=== PATIENT | male | born 1990 | race Caucasian/White ===

== ENCOUNTER 2016-09-02 04:12 | Emergency (ER) | payer SELFPAY ==
[2016-09-02 04:22] VITALS: BP 123/84; BMI 26.4
--- NOTE | 2016-09-02 04:40 | DR.GENAD ---
HPI - PCP Primary Care Physician: NFD - Complaint/Symptoms Chief Complaint Doctors Comments: Patient states that he dropped a TV on the foot tonight-admits to pain with ambulation. Quality sharp, severity moderate, duration tonight, modifying factor weight bearing. Chief Complaint:: INJURED LEFT FOOT - Source History Provided: Patient - Mode of Arrival Mode of Arrival: Ambulatory - Timing Onset of Chief Complaint: 09/02/16 PMH - PMH Past Medical History: No Past Surgical History: No - Family History History of Family Medical Conditions: Yes Family Medical History: Diabetes Mellitus, [place], Coronary Artery Disease, Hypertension - Social History Does patient currently use any type of tobacco product: Yes Have you used tobacco products in the last 12 months: Yes Type of Tobacco Use: Cigarettes Does any household member use tobacco: No Alcohol Use: None Do you use any recreational Drugs:: No Lives With: Family Lives Where: Home - infectious screening In the last 2 months have you had wt loss of >10#?: NO Have you had fever, night sweats or hemotysis?: No Have you traveled outside the country in the last 6 months?: No Isolation: Standard ROS - Review of Systems Eyes: No Symptoms Reported ENTM: No Symptoms Reported Respiratoy: No Symptoms Reported Cardiovascular: No Symptoms Reported Gastrointestinal/Abdominal: No Symptoms Reported Genitourinary: No Symptoms Reported Neurological: No Symptoms Reported Musculoskeletal: No Symptoms Reported Integumentary: No Symptoms Reported Hematologic/Lymphatic: No Symptoms Reported Endocrine: No Symptoms Reported Psychiatric: No Symptoms Reported All Other Systems: Reviewed and Negative PE - Vital Signs Vitals: Temperature 98.7 F Pulse Rate 81 Respiratory Rate 16 Blood Pressure 123/84 O2 Sat by Pulse Oximetry 98 - General Limitations: No Limitations General Appearance: Alert, In No Apparent Distress - Head Head Exam: Normal Inspection, Atraumatic - Eyes Eye exam: Normal Appearance, PERRL, EOMI - ENT ENT Exam: Normal Exam External Ear Exam: Normal External Inspection TM/Canal Exam: Bilateral Normal Nose Exam: Normal Nose Exam Mouth Exam: Normal Inspection Throat Exam: Normal Inspection - Neck Neck Exam: Normal Inspection - Chest Chest Inspection: Normal Inspection - Respiratory Respiratory Exam: Normal Lung Sounds Bilat Respiratory Exam: Bilateral Clear to Auscultation - Cardiovascular Cardiovascular Exam: Regular Rate, Normal Rhythm - Abdominal Exam Abdominal Exam: Normal Inspection Abdominal Tenderness: negative: RUQ, RLQ, LUQ, LLQ, Epigastrium, Suprapubic, Diffuse, Mild, Moderate, Severe, Other - Extremities Extremities Exam: Normal Inspection - Back Back Exam: Normal Inspection - Neurologic Neurological Exam: Alert, Oriented X3, CN II-XII Intact - Psychiatric Psychiatric Exam: Normal Affect - Skin Skin Exam: Warm, Dry, Other (left dorsum of foot with an abrasion navicular area ) Course - Reevaluation 1st: Improved ROR - XRAY XRAY Interpreted by: Radiologist (Left foot: No acute fracture or dislocation. The joint spaces are preserved. The soft tissues are normal. No radiopaque foreign body.) - Diagnosis Discharge Problem: Contusion of foot, left Qualifiers: Encounter type: initial encounter Qualified Code(s): S90.32XA - Contusion of left foot, initial encounter - Discharge Plan Condition: Stable - Follow ups/Referrals Follow ups/Referrals: NFD,None [Primary Care Provider] - 3 days - Instructions
--- NOTE | 2016-09-02 04:52 | RAD ---
EXAM: Left foot x-ray INDICATION: Pain COMPARISION: None TECHNIQUE: AP, lateral, and oblique, three views FINDINGS: No acute fracture or dislocation. The joint spaces are preserved. The soft tissues are normal. No ra diopaque foreign body. IMPRESSION: Normal left foot x-ray exam Reported By:
== END 2016-09-02 05:17 | disposition home or self-care (01) | DRG 605 ==
LOC: ER 04:12
DX: S90.32XA Contusion of left foot, initial encounter (principal); W20.8XXA Other cause of strike by thrown, projected or falling object, initial encounter; Y92.89 Other specified places as the place of occurrence of the external cause
CPT/HCPCS: 29550; 73630; 99282; 99283

== ENCOUNTER 2016-09-06 00:42 | Emergency (ER) | payer SELFPAY ==
[2016-09-06 00:47] VITALS: BP 135/74; BMI 26.4
--- NOTE | 2016-09-06 00:52 | DR.GENAD ---
HPI - PCP Primary Care Physician: nfd - Complaint/Symptoms Chief Complaint:: breakout/rash - Nurses notes reviewed Nurses Notes Review: Yes - Source History Provided: Patient - Mode of Arrival Mode of Arrival: Ambulatory - Timing Onset of Chief Complaint: 09/06/16 Came on: Gradually - Duration How lon Duration: Days - Location Location: both arms - Severity Severity: Moderate - Modifying Factors Worsens:: nothing - Associated Signs and Symptoms Associated Signs and Symptoms: itchy - Other History Other History: helped friend move into house yesterday PMH - PMH Past Medical History: No Past Surgical History: No - Family History History of Family Medical Conditions: Yes Family Medical History: Diabetes Mellitus, [place], Coronary Artery Disease, Hypertension - Social History Does patient currently use any type of tobacco product: No Have you used tobacco products in the last 12 months: No Type of Tobacco Use: None Does any household member use tobacco: No Alcohol Use: Occasionally Do you use any recreational Drugs:: No Lives With: Family Lives Where: Home - infectious screening In the last 2 months have you had wt loss of >10#?: NO Have you had fever, night sweats or hemotysis?: No Have you traveled outside the country in the last 6 months?: No Isolation: Standard ROS - Review of Systems Constitutional: No Symptoms Reported Eyes: No Symptoms Reported ENTM: No Symptoms Reported Respiratoy: No Symptoms Reported Cardiovascular: No Symptoms Reported Gastrointestinal/Abdominal: No Symptoms Reported Genitourinary: No Symptoms Reported Neurological: No Symptoms Reported Musculoskeletal: No Symptoms Reported Integumentary: Rash (both arms) Hematologic/Lymphatic: No Symptoms Reported Endocrine: No Symptoms Reported Psychiatric: No Symptoms Reported All Other Systems: Reviewed and Negative PE - Vital Signs Vitals: Temperature 98.6 F Pulse Rate 111 Respiratory Rate 16 Blood Pressure 135/74 O2 Sat by Pulse Oximetry 98 - General Limitations: No Limitations General Appearance: Alert, In No Apparent Distress - Head Head Exam: Normal Inspection - Eyes Eye exam: Normal Appearance, EOMI. negative: Scleral Icterus, Conjunctival Injection - ENT ENT Exam: Normal Exam, Normal Oropharynx External Ear Exam: Normal External Inspection - Neck Neck Exam: Normal Inspection, Full ROM, Trachea Midline - Respiratory Respiratory Exam: negative: Accessory Muscle Use, Respiratory Distress - Abdominal Exam Abdominal Exam: Normal Inspection, Normal Bowel Sounds, Soft. negative: Distention, Tenderness, Guarding - Extremities Extremities Exam: Normal Inspection, Full ROM - Back Back Exam: Normal Inspection, Full ROM - Neurologic Neurological Exam: Alert, Oriented X3, CN II-XII Intact - Psychiatric Psychiatric Exam: Normal Mood - Skin Skin Exam: Intact, Rash (papular rash inside of both arms). negative: Normal Color - Diagnosis Discharge Problem: Contact dermatitis Qualifiers: Contact dermatitis type: irritant Contact dermatitis trigger: unspecified trigger Qualified Code(s): L24.9 - Irritant contact dermatitis, unspecified cause - Discharge Plan Condition: Stable - Follow ups/Referrals Follow ups/Referrals: NFD,None [Primary Care Provider] - 3 days - Instructions
[2016-09-06] MEDS ORDERED: PREDNISONE TAB 20 MG PO ONE ×2 (01:02→01:04)
== END 2016-09-06 01:05 | disposition home or self-care (01) ==
LOC: ER 00:49
DX: L24.89 Irritant contact dermatitis due to other agents (principal)
CPT/HCPCS: 99281; 99282; J7506

== ENCOUNTER 2016-10-30 00:27 | Emergency (ER) | payer SELFPAY ==
[2016-10-30 00:36] VITALS: BP 136/79; BMI 29.8
--- NOTE | 2016-10-30 01:22 | DR.GENAD ---
HPI - PCP Primary Care Physician: nfd - HPI Comment HPI Comment: WORSE TODAY. NO FEVER. - Complaint/Symptoms Chief Complaint Doctors Comments: SOB, CHEST PAIN, COUGH CONGESTION AND HEMOPTESIS TIMES 3 DAYS, Chief Complaint:: cough bloodand can't breath - Nurses notes reviewed Nurses Notes Review: Yes - Source History Provided: Patient - Mode of Arrival Mode of Arrival: Ambulatory - Timing Onset of Chief Complaint: 10/27/16 Came on: Suddenly - Duration Duration: Constant Duration: Days - Severity Severity: Moderate PMH - PMH Past Medical History: No Past Surgical History: No - Family History History of Family Medical Conditions: Yes Family Medical History: Diabetes Mellitus, [place], Coronary Artery Disease, Hypertension - Social History Does patient currently use any type of tobacco product: Yes Have you used tobacco products in the last 12 months: Yes Type of Tobacco Use: Cigarettes Does any household member use tobacco: Yes Alcohol Use: None Do you use any recreational Drugs:: Yes Lives With: Family Lives Where: Home - infectious screening In the last 2 months have you had wt loss of >10#?: NO Have you had fever, night sweats or hemotysis?: No Have you traveled outside the country in the last 6 months?: No Isolation: Standard ROS - Review of Systems Constitutional: Weakness, Fatigue. negative: Chills, Fever Eyes: No Symptoms Reported. negative: Eye Pain, Discharge ENTM: No Symptoms Reported, Nose Discharge, Nose Congestion, Throat Pain. negative: Ear Pain Respiratoy: Productive Cough, Short of Breath, Wheezing, Hemoptysis Cardiovascular: Chest Pain Gastrointestinal/Abdominal: No Symptoms Reported. negative: Abdominal Pain, Diarrhea, Nausea, Vomiting Genitourinary: No Symptoms Reported. negative: Dysuria, Frequency, Hematuria Neurological: Headache Musculoskeletal: Muscle Pain Integumentary: No Symptoms Reported Hematologic/Lymphatic: No Symptoms Reported Endocrine: No Symptoms Reported All Other Systems: Reviewed and Negative PE - Vital Signs Vitals: Temperature 98.1 F Pulse Rate 98 Respiratory Rate 18 Blood Pressure 136/79 O2 Sat by Pulse Oximetry 98 - General Limitations: No Limitations General Appearance: Alert - Head Head Exam: Normal Inspection - Eyes Eye exam: Normal Appearance - ENT ENT Exam: Normal External Ear Exam External Ear Exam: Normal External Inspection TM/Canal Exam: Bilateral Bulging Nose Exam: Normal Nose Exam Mouth Exam: Normal Inspection Throat Exam: Normal Inspection - Neck Neck Exam: Trachea Midline - Chest Chest Inspection: Symmetric Chest Wall Rise - Respiratory Respiratory Exam: Normal Lung Sounds Bilat Respiratory Exam: Bilateral Clear to Auscultation - Cardiovascular Cardiovascular Exam: Regular Rate, Normal Rhythm, Normal Heart Sounds - Abdominal Exam Abdominal Exam: Normal Bowel Sounds, Soft. negative: Tenderness - Extremities Extremities Exam: Normal Inspection. negative: Tenderness - Back Back Exam: Normal Inspection - Neurologic Neurological Exam: Alert, Oriented X3, CN II-XII Intact, Normal Gait, Reflexes Normal. negative: Motor Sensory Deficit - Psychiatric Psychiatric Exam: Anxious - Skin Skin Exam: Normal Color MDM - Additional Information Additional Information Obtained From: Family - Differential Diagnosis Differential Diagnosis: PNEUMONIA, BRONCHITIS, HEMOTESIS, SINUSITIS Course - Treatment Treatment: SEE ORDERS, - Education/Counseling Education/Counseling: Patient, Family, Education Educated On: Treatment, Diagnosis, Needs for Follow Up ROR - Labs Reviewed Laboratory Results Reviewed?: Yes Result Diagrams: 10/30/16 01:27 10/30/16 01:27 Laboratory: WBC 7.3 X10^3/uL (3.6-10.0) 10/30/16 01: RBC 4.55 X10^6/uL (4.7-6.0) L 10/30/16 01: Hgb 14.8 g/dL (13.5-18.0) 10/30/16 01: Hct 41.7 % (42.0-54.0) L 10/30/16 01: MCV 91.7 fL (80.0-100.0) 10/30/16 01: MCH 32.4 pg (27.0-34.0) 10/30/16 01: MCHC 35.4 g/dL (33.0-35.0) H 10/30/16 01: RDW 13.4 % (11.6-16.5) 10/30/16: Plt Count 206 X10^3/uL (150.0-450.0) 10/30/16: MPV 7.9 fL (7.4-11.0) 10/30/16: Neut % 54.2 % (42.0-75.0) 10/30/16: Lymph % 28.0 % (21.0-51.0) 10/30/16 01:27 [place] % 14.0 % (0.0-13.0) H 10/30/16 01: Eos % 2.9 % (0.9-2.9) 10/30/16 01: Baso % 0.9 % (0.2-1.0) 10/30/16 01:27 Neut # 4.0 x10^3/uL (2.2-4.8) 10/30/16 01: Lymph # 2.0 X10^3/uL (1.3-2.9) 10/30/16 01:27 [place] # 1.0 x10^3/uL (0.3-0.8) H 10/30/16 01: Eos # 0.2 x10^3/uL (0.0-0.2) 10/30/16 01: Baso # 0.1 X10^3/uL (0.0-0.1) 10/30/16 01: Absolute Nucleated RBC 0.0 /100WBC 10/30/16 01:27 INR Target Range - 10/30/16 01:27 INR 0.98 (0.8-1.3) 10/30/16 01:27 PTT 30.1 SECONDS (22.9-36.5) 10/30/16 01:27 PTT Comment - 10/30/16 01:27 Sodium 138 mmol/L (136-145) 10/30/16 01:27 Corrected Sodium TNP 10/30/16 01:27 Potassium 4.3 mmol/L (3.5-5.1) 10/30/16 01:27 Chloride 103 mmol/L (98-107) 10/30/16 01:27 Carbon Dioxide 32.1 mmol/L (21-32) H 10/30/16 01:27 BUN 9 mg/dL (7-18) 10/30/16 01:27 Creatinine 0.89 mg/dL (0.70-1.30) 10/30/16 01:27 Est GFR (MDRD) Af Amer > 60 (>60) 10/30/16 01:27 Est GFR (MDRD) Non-Af > 60 (>60) 10/30/16 01:27 Glucose 91 mg/dL (65-99) 10/30/16 01:27 Calcium 8.6 mg/dL (8.5-10.1) 10/30/16 01:27 Corrected Calcium TNP 10/30/16 01:27 Total Bilirubin 0.30 mg/dL (0.2-1.0) 10/30/16 01:27 AST 17 Units/L (15-37) 10/30/16 01:27 ALT 21 Units/L (12-78) 10/30/16 01:27 Alkaline Phosphatase 56 Units/L (46-116) 10/30/16 01:27 Total Protein 7.3 g/dL (6.4-8.2) 10/30/16 01: Albumin 3.7 g/dL (3.4-5.0) 10/30/16: Globulin 3.6 g/dL (2.5-4.5) 10/30/16: Albumin/Globulin Ratio 1.0 Ratio (1.1-2.1) L 10/30/16 01:27 - XRAY XRAY Interpreted by: Self XRAY Findings: XRAY DISCUSS WITH PATIENT BRONCHITIS - Diagnosis Discharge Problem: Hemoptysis Acute bronchitis Qualifiers: Bronchitis organism: other organism Qualified Code(s): J20.8 - Acute bronchitis due to other specified organisms - Discharge Plan Condition: Stable Prescriptions: Amoxicillin [Amoxil 875 mg] 875 mg PO TID #30 tab Promethazine W/Codeine [PHENERGAN W/CODEINE 6.25mg/10mg (5mL) *] 10 ml PO Q6H PRN #120 ml PRN Reason: Cough - Follow ups/Referrals Follow ups/Referrals: NFD,None [Primary Care Provider] - 3 days - Instructions Instructions: Hemoptysis, Acute Bronchitis, [id number] Additional Instructions: RETURN TO ED
[2016-10-30] MEDS ORDERED: PHENERGAN W/CODEINE 6.25MG/10MG PO ONE (01:25)
[2016-10-30] MEDS ORDERED: AMOXIL CAP 500 MG PO ONE ×2 (01:25→01:52)
[2016-10-30 01:40] LABS: BASOPHILS # (AUTO) 0.1 X10^3/uL (0.0-0.1); BASOPHILS % (AUTO) 0.9 % (0.2-1.0); EOSINOPHILS # (AUTO) 0.2 x10^3/uL (0.0-0.2); EOSINOPHILS % (AUTO) 2.9 % (0.9-2.9); HEMATOCRIT 41.7 % (42.0-54.0); HEMOGLOBIN 14.8 g/dL (13.5-18.0); MEAN CORPUSCULAR HEMOGLOBIN 32.4 pg (27.0-34.0); MEAN CORPUSCULAR HGB CONC 35.4 g/dL (33.0-35.0); MEAN CORPUSCULAR VOLUME 91.7 fL (80.0-100.0); MEAN PLATELET VOLUME 7.9 fL (7.4-11.0); NEUTROPHILS % (AUTO) 54.2 % (42.0-75.0); PLATELET COUNT 206 X10^3/uL (150.0-450.0); RED BLOOD COUNT 4.55 X10^6/uL (4.7-6.0); RED CELL DISTRIBUTION WIDTH 13.4 % (11.6-16.5); WHITE BLOOD COUNT 7.3 X10^3/uL (3.6-10.0)
[2016-10-30] MEDS ORDERED: PHENERGAN W/CODEINE 6.25MG/10MG ONE (01:41)
[2016-10-30 01:59] LABS: ALANINE AMINOTRANSFERASE 21 Units/L (12-78); ALBUMIN 3.7 g/dL (3.4-5.0); ALKALINE PHOSPHATASE 56 Units/L (46-116); ASPARTATE AMINO TRANSFERASE 17 Units/L (15-37); BLOOD UREA NITROGEN 9 mg/dL (7-18); CALCIUM 8.6 mg/dL (8.5-10.1); CARBON DIOXIDE 32.1 mmol/L (21-32); CHLORIDE 103 mmol/L (98-107); CREATININE 0.89 mg/dL (0.70-1.30); GLUCOSE 91 mg/dL (65-99); SODIUM 138 mmol/L (136-145); TOTAL PROTEIN 7.3 g/dL (6.4-8.2); eGFR BLACK RACES > 60 (>60); eGFR NON BLACK RACES > 60 (>60)
--- NOTE | 2016-10-30 02:27 | RAD ---
AP Chest Indication: Chest pain with hemoptysis Comparison: none available Findings: The trachea is midline. The cardiac silhouette is unremarkable. The lungs are clear without focal i nfiltrate or effusion. The bony thorax is unremarkable. IMPRESSION: 1. No acute cardiopulmonary abnormality. Reported By:
== END 2016-10-30 02:20 | disposition home or self-care (01) ==
LOC: ER 00:27
DX: J02.8 Acute pharyngitis due to other specified organisms (principal); R04.2 Hemoptysis
CPT/HCPCS: 36415; 71010; 80053; 85025; 85610; 85730; 99283

== ENCOUNTER 2017-06-17 22:34 | Emergency (ER) | payer SELFPAY ==
[2017-06-17 22:47] VITALS: BMI 30.3
[2017-06-17 23:13] LABS: BILIRUBIN,URINE 2+ (NEGATIVE); BLOOD/HEMOGLOBIN,URINE 1+ (NEGATIVE); GLUCOSE, URINE NEGATIVE (NEGATIVE); KETONES,URINE 1+ (NEGATIVE); LEUKOCYTE ESTERASE ,URINE 2+ (NEGATIVE); NITRITES,URINE NEGATIVE (NEGATIVE); PROTEIN,URINE 2+ (NEGATIVE); UROBILINOGEN,URINE 3+ (NORMAL)
[2017-06-17 23:19] LABS: BASOPHILS # (AUTO) 0.1 X10^3/uL (0.0-0.1); BASOPHILS % (AUTO) 0.8 % (0.2-1.0); EOSINOPHILS # (AUTO) 0.2 x10^3/uL (0.0-0.2); EOSINOPHILS % (AUTO) 2.6 % (0.9-2.9); HEMATOCRIT 40.1 % (42.0-54.0); HEMOGLOBIN 14.2 g/dL (13.5-18.0); LYMPHOCYTES # (AUTO) 1.9 X10^3/uL (1.3-2.9); LYMPHOCYTES % (AUTO) 26.4 % (21.0-51.0); MEAN CORPUSCULAR HEMOGLOBIN 32.3 pg (27.0-34.0); MEAN CORPUSCULAR HGB CONC 35.5 g/dL (33.0-35.0); MEAN PLATELET VOLUME 7.1 fL (7.4-11.0); MONOCYTES # (AUTO) 1.1 x10^3/uL (0.3-0.8); MONOCYTES % (AUTO) 15.2 % (0.0-13.0); PLATELET COUNT 283 X10^3/uL (150.0-450.0); RED BLOOD COUNT 4.41 X10^6/uL (4.7-6.0); RED CELL DISTRIBUTION WIDTH 13.3 % (11.6-16.5); WHITE BLOOD COUNT 7.2 X10^3/uL (3.6-10.0)
[2017-06-17 23:26] LABS: APPEARANCE,URINE SLIGHTLY HAZY (CLEAR); COLOR,URINE AMBER (YELLOW)
[2017-06-17 23:27] LABS: SALICYLATE < 2.8 mg/dL (2.8-20)
[2017-06-17 23:28] LABS: BACTERIA,URINE NEGATIVE /HPF (NEGATIVE); CALCIUM OXALATE CRYSTALS,UR FEW /HPF (NEGATIVE); MUCUS,URINE NUMEROUS /HPF (NEGATIVE); SQUAMOUS EPITHELIAL CELL,UR MODERATE /HPF (NEGATIVE)
[2017-06-17 23:29] LABS: ALANINE AMINOTRANSFERASE 20 Units/L (12-78); ALBUMIN 3.9 g/dL (3.4-5.0); ALKALINE PHOSPHATASE 60 Units/L (46-116); ASPARTATE AMINO TRANSFERASE 17 Units/L (15-37); BLOOD ALCOHOL < 3 mg/dL (0-19.9); BLOOD UREA NITROGEN 9 mg/dL (7-18); CALCIUM 8.7 mg/dL (8.5-10.1); CARBON DIOXIDE 28.2 mmol/L (21-32); CHLORIDE 103 mmol/L (98-107); COR NA(FOR HYPERGLY) 140 mmol/L (136-145); CREATININE 1.12 mg/dL (0.70-1.30); SODIUM 140 mmol/L (136-145); TOTAL PROTEIN 7.7 g/dL (6.4-8.2); eGFR BLACK RACES > 60 (>60); eGFR NON BLACK RACES > 60 (>60)
--- NOTE | 2017-06-18 00:05 | DR.GENAD ---
HPI - PCP Primary Care Physician: NFD - Complaint/Symptoms Chief Complaint Doctors Comments: Patient states that he does not know why he is here that is not thinking about killing himself or anyone else. States he has scatches on his left arm from his sister's cats. States he is worried about his mother who has lost one lef and is about to loose another leg. states he has not seen her in six years because he was locked up until recently he got out for thief by taking. Patient denies chest pain, SOB, nausea or vomiting. Patient brought in by police who said the patient got into an argument with his sister who just broke up with him and told her if she did not call his girl friend he was going to kill himself. states the patient pulled a kitchen knife and his sister took that from him and he pulled out a pocket knife and scratched his left arm states he was going to kill himself. Police states patient said if he was thinking about killing himself he would call the police or someone and the police was leaving and the patient said that he would probable not call anyone and just kill himself and the police brought him to the emergency room for evaluation. Patient presently denies any suicidal thoughts or attempts. States he has never tried to kill himself and is not thinking about killing himself or anyone. Chief Complaint:: PATIENT STATES, "I DON'T KNOW WHY I AM HERE. I WAS VISITING MY SISTER AT THE APARTMENT AND 2 SALES DEPARTMENT CLERK CAME TO THE DOOR AND CALLED ME OUT. YALL ARE WASTING YALLS TIME HERE. THE CATS SCRATCHED ME ON THE WRIST." NOTED 2 ABRASIONS, SCRATCHES TO LEFT WRIST. NO ACTIVE BLEEDING. PATIENT DENIES ANY MEDICAL HISTORY, ANY MEDICATIONS AND STATES, "I AM HOMELESS." - Nurses notes reviewed Nurses Notes Review: Yes - Source History Provided: Patient, Law Enforcement - Mode of Arrival Mode of Arrival: Ambulatory - Timing Onset of Chief Complaint: 06/17/17 Came on: Gradually - Duration Duration: Intermittent Duration: Hours - Location Location: scratches to left arm - Severity Severity: Mild (superficial scratches ) - Modifying Factors Worsens:: nothing Improves:: nothing <CHRISTINA GRUBER - Last Filed: 06/18/17 02:06> PMH - PMH Past Medical History: Yes Past Medical History: Schizophrenia Past Medical History Comment: SCHIZOPHRENIA, ADD/ADHD Past Surgical History: No - Family History History of Family Medical Conditions: Yes Family Medical History: Diabetes Mellitus, [place], Coronary Artery Disease, Hypertension - Social History Type of Tobacco Use: Cigarettes Alcohol Use: Occasionally Do you use any recreational Drugs:: Yes (THC) Lives Where: Homeless - infectious screening Have you traveled outside the country in the last 6 months?: No Isolation: Standard <CHRISTINA GRUBER - Last Filed: 06/18/17 02:06> ROS - Review of Systems Constitutional: No Symptoms Reported. negative: See HPI, Chills, Diaphoresis, Fever, Malaise, Weakness, Irritable, Fatigue, Loss of Appetite, Other Eyes: No Symptoms Reported ENTM: No Symptoms Reported. negative: See HPI, Ear Pain, Ear Discharge, Pulling on Ears, Hearing Loss, Nose Pain, Nose Discharge, Epistaxis, Nose Congestion, Mouth Pain, Mouth Swelling, Loose Teeth, Drooling, Throat Pain, Throat Swelling, Ear Foreign Body Respiratoy: No Symptoms Reported. negative: See HPI, Productive Cough, Non- Productive Cough, Moist Cough, Dry Cough, Hacking Cough, Barking Cough, Brassy Cough, Orthopnea, Short of Breath, Stridor, Wheezing, Hemoptysis, Other Cardiovascular: No Symptoms Reported. negative: See HPI, Chest Pain, Edema, Palpitations, Syncope, Cyanosis, Skin Mottling, Other Gastrointestinal/Abdominal: No Symptoms Reported, Abdominal Pain (lower abdominal pain when he bend). negative: See HPI, Constipation, Diarrhea, Nausea , Vomiting, Food Intolerance, Other Genitourinary: No Symptoms Reported. negative: See HPI, Discharge, Dysuria, Frequency, Hematuria, Pain, Bleeding, Other Neurological: No Symptoms Reported, Emotional Problems. negative: See HPI, Anxiety, Depressed, Headache, Numbness, Paresthesia, Pre-existing Deficit, Seizure, Tingling, Tremors, Weakness, Dizziness, Problems Walking, Speech Problem, Other Musculoskeletal: No Symptoms Reported Integumentary: No Symptoms Reported, Bruises (left arm with superficial scratches) Hematologic/Lymphatic: No Symptoms Reported Endocrine: No Symptoms Reported Psychiatric: No Symptoms Reported <CHRISTINA GRUBER - Last Filed: 06/18/17 02:06> PE - General Limitations: No Limitations General Appearance: Alert, In No Apparent Distress - Head Head Exam: Normal Inspection, Atraumatic, Normocephalic - Eyes Eye exam: Normal Appearance, PERRL, EOMI. negative: Scleral Icterus, Conjunctival Injection, Nystagmus, Miosis, Mydrasis, Periorbital Swelling, Periorbital Tenderness, Other - ENT ENT Exam: Normal Exam, Normal Oropharynx, Normal External Ear Exam, Mucous Membranes Moist, TM's Normal Bilaterally External Ear Exam: Normal External Inspection TM/Canal Exam: Bilateral Normal Nose Exam: Normal Nose Exam Mouth Exam: Normal Inspection Throat Exam: Normal Inspection - Neck Neck Exam: Normal Inspection, Full ROM, Trachea Midline - Chest Chest Inspection: Normal Inspection, Symmetric Chest Wall Rise - Respiratory Respiratory Exam: Normal Lung Sounds Bilat Respiratory Exam: Bilateral Clear to Auscultation - Cardiovascular Cardiovascular Exam: Regular Rate, Normal Rhythm, Normal Heart Sounds - Abdominal Exam Abdominal Exam: Normal Inspection, Normal Bowel Sounds, Soft. negative: Distention, Tenderness, Guarding, Rebound, Rigidity, Dimnished Bowel Sounds, Hyperactive Bowel Sounds, Hypoactive Bowel Sounds, Organomegaly, Trauma, Incision, Ascites, Mass, Bruit, Pulsatile Mass, Hernia, Other Abdominal Tenderness: negative: RUQ, RLQ, LUQ, LLQ, Epigastrium, Suprapubic, Diffuse, Mild, Moderate, Severe, Other - Extremities Extremities Exam: Normal Inspection, Full ROM, Normal Capillary Refill. negative: Tenderness, Edema, Joint Swelling, Calf Tenderness, Other - Back Back Exam: Normal Inspection, Full ROM - Neurologic Neurological Exam: Alert, Oriented X3, CN II-XII Intact, Normal Gait, Reflexes Normal - Psychiatric Psychiatric Exam: Normal Affect, Normal Mood - Skin Skin Exam: Warm, Dry, Intact, Normal Color <CHRISTINA GRUBER - Last Filed: 06/18/17 02:06> - Vital Signs Vitals: Temperature 98.2 F Pulse Rate [Left Radial] 67 Pulse Rate 95 Respiratory Rate 17 Blood Pressure [Left Arm] 108/70 Blood Pressure 145/76 O2 Sat by Pulse Oximetry 99 ROR - Labs Reviewed Laboratory Results Reviewed?: Yes (All labs and x-ray results reviewed and discussed with patient) Result Diagrams: 06/17/17 23:00 06/17/17 23:00 - XRAY XRAY Interpreted by: Radiologist - EKG Rate: 87 [place]: Normal Rhythm: NSR, PACs Block: None Hypertrophy: None, LAE ST: Nonsp <CHRISTINA GRUBER - Last Filed: 06/18/17 02:06> - Labs Reviewed Result Diagrams: 06/17/17 23:00 06/17/17 23:00 <YEVGENIYFRANCK SanchezSHONDA - Last Filed: 06/20/17 17:13> - Labs Reviewed Laboratory: WBC 7.2 X10^3/uL (3.6-10.0) 06/17/17 23:00 RBC 4.41 X10^6/uL (4.7-6.0) L 06/17/17 23:00 Hgb 14.2 g/dL (13.5-18.0) 06/17/17 23:00 Hct 40.1 % (42.0-54.0) L 06/17/17 23:00 MCV 91.0 fL (80.0-100.0) 06/17/17 23:00 MCH 32.3 pg (27.0-34.0) 06/17/17 23:00 MCHC 35.5 g/dL (33.0-35.0) H 06/17/17 23:00 RDW 13.3 % (11.6-16.5) 06/17/17 23:00 Plt Count 283 X10^3/uL (150.0-450.0) 06/17/17 23:00 MPV 7.1 fL (7.4-11.0) L 06/17/17 23:00 Neut % (Auto) 55.0 % (42.0-75.0) 06/17/17 23:00 Lymph % (Auto) 26.4 % (21.0-51.0) 06/17/17 23:00 [place] % (Auto) 15.2 % (0.0-13.0) H 06/17/17 23:00 Eos % (Auto) 2.6 % (0.9-2.9) 06/17/17 23:00 Baso % (Auto) 0.8 % (0.2-1.0) 06/17/17 23:00 Neut # (Auto) 4.0 x10^3/uL (2.2-4.8) 06/17/17 23:00 Lymph # (Auto) 1.9 X10^3/uL (1.3-2.9) 06/17/17 23:00 [place] # (Auto) 1.1 x10^3/uL (0.3-0.8) H 06/17/17 23:00 Eos # (Auto) 0.2 x10^3/uL (0.0-0.2) 06/17/17 23:00 Baso # (Auto) 0.1 X10^3/uL (0.0-0.1) 06/17/17 23:00 Absolute Nucleated RBC 0.0 /100WBC 06/17/17 23:00 Sodium 140 mmol/L (136-145) 06/17/17 23:00 Corrected Sodium 140 mmol/L (136-145) 06/17/17 23:00 Potassium 3.6 mmol/L (3.5-5.1) 06/17/17 23:00 Chloride 103 mmol/L (98-107) 06/17/17 23:00 Carbon Dioxide 28.2 mmol/L (21-32) 06/17/17 23:00 BUN 9 mg/dL (7-18) 06/17/17 23:00 Creatinine 1.12 mg/dL (0.70-1.30) 06/17/17 23:00 Est GFR (MDRD) Af Amer > 60 (>60) 06/17/17 23:00 Est GFR (MDRD) Non-Af > 60 (>60) 06/17/17 23:00 Glucose 114 mg/dL (65-99) H 06/17/17 23:00 Calcium 8.7 mg/dL (8.5-10.1) 06/17/17 23:00 Corrected Calcium TNP 06/17/17 23:00 Total Bilirubin 0.50 mg/dL (0.2-1.0) 06/17/17 23:00 AST 17 Units/L (15-37) 06/17/17 23:00 ALT 20 Units/L (12-78) 06/17/17 23:00 Alkaline Phosphatase 60 Units/L (46-116) 06/17/17 23:00 Total Protein 7.7 g/dL (6.4-8.2) 06/17/17 23:00 Albumin 3.9 g/dL (3.4-5.0) 06/17/17 23:00 Globulin 3.8 g/dL (2.5-4.5) 06/17/17 23:00 Albumin/Globulin Ratio 1.0 Ratio (1.1-2.1) L 06/17/17 23:00 Specimen Type Clean catch urine 06/17/17 22:50 Urine Color Aracelis (YELLOW) 06/17/17 22:50 Urine Appearance Slightly hazy (CLEAR) 06/17/17 22:50 Urine pH 6.0 (5.0 - 8.0) 06/17/17 22:50 Ur Specific [place] 1.020 (1.000-1.030) 06/17/17 22:50 Urine Protein 2+ (NEGATIVE) 06/17/17 22:50 Urine Glucose (UA) Negative (NEGATIVE) 06/17/17 22:50 Urine Ketones 1+ (NEGATIVE) 06/17/17 22:50 Urine Occult Blood 1+ (NEGATIVE) 06/17/17 22:50 Urine Nitrite Negative (NEGATIVE) 06/17/17 22:50 Urine Bilirubin 2+ (NEGATIVE) 06/17/17 22:50 Urine Urobilinogen 3+ (NORMAL) 06/17/17 22:50 Ur Leukocyte Esterase 2+ (NEGATIVE) 06/17/17 22:50 Urine RBC 5-10 /HPF (NONE SEEN) 06/17/17 22:50 Urine WBC 3-5 /HPF (NONE SEEN) 06/17/17 22:50 Ur Squamous Epith Cells Moderate /HPF (NEGATIVE) 06/17/17 22:50 Calcium Oxalate Crystal Few /HPF (NEGATIVE) 06/17/17 22:50 Urine Bacteria Negative /HPF (NEGATIVE) 06/17/17 22:50 Urine Mucus Numerous /HPF (NEGATIVE) 06/17/17 22:50 Ur Culture Indicated? No/not indicated 06/17/17 22:50 Salicylates < 2.8 mg/dL (2.8-20) L 06/17/17 23:00 Urine Opiates Screen Negative (NEG=<300) 06/17/17 22:50 Urine Methadone Screen Negative (NEG=<300) 06/17/17 22:50 Acetaminophen 0.0 ug/mL (10-30) L 06/17/17 23:00 Ur Barbiturates Screen Negative (NEG=<200) 06/17/17 22:50 Ur Phencyclidine Scrn Negative (NEG=<25) 06/17/17 22:50 Ur Amphetamines Screen Negative (NEG=<1000) 06/17/17 22:50 U Benzodiazepines Scrn Negative (NEG=<200) 06/17/17 22:50 Urine Cocaine Screen Negative (NEG=<300) 06/17/17 22:50 U Marijuana (THC) Screen Positive (NEG=<50) A 06/17/17 22:50 Ethyl Alcohol mg/dL < 3 mg/dL (0-19.9) 06/17/17 23:00 <CHRISTINA GRUBER - Last Filed: 06/18/17 02:06> <SHONDA VUONG - Last Filed: 06/20/17 17:13> - Diagnosis Discharge Problem: Neurosis, depressive, Suicidal ideations, Bipolar 1 disorder, Agitation - Discharge Plan Disposition: 01 HOME, SELF-CARE Condition: Stable - Follow ups/Referrals Follow ups/Referrals: NFD,None [Primary Care Provider] - 3 days - Instructions Instructions: Bipolar 1 Disorder, Suicidal Feelings: How to Help Yourself Additional Notes - Additional Notes Additional Notes: Unable to place patient despite multiple attempts. Pt calm, cooperative throughout ER stay. Reevaluated by mental health approx 4:30pm . Pt now thought to have NO SI and NO HI. OK to d/c home, 1013 rescinded and pt d/c home. Encouraged to return to ER if symptoms recur. <SHONDA VUONG - Last Filed: 06/20/17 17:13>
[2017-06-19] MEDS: NICOTINE PATCH TD SCH (15:24)
[2017-06-20 11:42] VITALS: BP 108/70
[2017-06-20] MEDS: NICOTINE PATCH TD SCH (17:03)
== END 2017-06-20 17:21 | disposition home or self-care (01) ==
LOC: ER 22:34
DX: F34.1 Dysthymic disorder (principal); R45.851 Suicidal ideations; R31.9 Hematuria, unspecified; R45.1 Restlessness and agitation
CPT/HCPCS: 36415; 80053; 80307; 81001; 85025; 93005; 93010; 99283; 99285; G0434; G6038; G6039; G6040